=== PATIENT | male | born 1975 | race American Indian/Alaskan Native ===

== ENCOUNTER 2020-03-22 18:45 | Emergency (ER) | payer SELFPAY ==
--- NOTE | 2020-03-22 18:57 | Emergency Department Report ---
Blank Doc - Documentation Documentation: 44-year-old male that presents with chest pain and SOB. This initial assessment/diagnostic orders/clinical plan/treatment(s) is/are subject to change based on patient's health status, clinical progression and re- assessment by fellow clinical providers in the ED. Further treatment and workup at subsequent clinical providers discretion. Patient/guardians urged not to elope from the ED as their condition may be serious if not clinically assessed and managed. Initial orders include: 1- Patient sent to [facility] for further evaluation and treatment 2- cardiac workup
[2020-03-22 19:16] LABS: Basophils % (Auto) 0.3 % (0.0-1.8); Eosinophils # (Auto) 0.1 K/mm3 (0.0-0.4); Eosinophils % (Auto) 0.9 % (0.0-4.3); Hemoglobin 15.3 gm/dl (11.8-15.2); Lymphocytes # (Auto) 2.5 K/mm3 (1.2-5.4); Lymphocytes % (Auto) 21.9 % (13.4-35.0); Mean Corpuscular HGB Conc 33 % (32-34); Mean Corpuscular Volume 89 fl (84-94); Monocytes # (Auto) 0.7 K/mm3 (0.0-0.8); Monocytes % (Auto) 5.9 % (0.0-7.3); Platelet Count 207 K/mm3 (140-440); Red Blood Count 5.15 M/mm3 (3.65-5.03); Red Cell Distribution Width 12.8 % (13.2-15.2)
[2020-03-22 19:24] LABS: INR 0.93 (0.87-1.13)
[2020-03-22 19:25] LABS: Partial Thromboplastin Time 27.2 Sec. (24.2-36.6)
--- NOTE | 2020-03-22 19:27 | XRay Report ---
CHEST PA AND LATERAL VIEWS INDICATION: Chest Pain. COMPARISON: None. FINDINGS: Support devices: None. Heart: Within normal limits. Lungs/Pleura: No acute pulmonary or pleural findings. IMPRESSION: 1. No acute findings. Signer Name: Ben Slainas MD Signed: 03/22/2020 7:23 PM Workstation Name: [id number]
[2020-03-22 19:31] LABS: Alanine Aminotransferase 31 units/L (7-56); Albumin 4.9 g/dL (3.9-5); BUN/Creatinine Ratio 13; Blood Urea Nitrogen 10 mg/dL (9-20); Calcium 9.5 mg/dL (8.4-10.2); Hemolysis Index 18
[2020-03-22] MEDS ORDERED: LIDOCAINE VISCOUS 2% 15 ML ORAL LIQD PO ONE (19:52)
[2020-03-22] MEDS ORDERED: IBUPROFEN 800 MG TAB PO ONE (19:52)
[2020-03-22] MEDS ORDERED: ALUM-MAG HYDROXIDE-SIMETHICONE 200-200-20MG/5ML ORAL LIQD 30 ML PO ONE (19:52)
--- NOTE | 2020-03-22 20:03 | Emergency Department Report ---
ED Chest Pain HPI - General Chief Complaint: Chest Pain Stated Complaint: CHEST PAINS Time Seen by Provider: 03/22/20 18:56 Source: patient, family Mode of arrival: Ambulatory Limitations: No Limitations - History of Present Illness Initial Comments: Patient is a 44-year-old -Prydeinig male with a history of hypertension. Patient complains of chest pain with shortness of breath x2 days. There is no dizziness, lightheadedness, nausea vomiting,diaphoresis, no fever no chills. There is no productive cough no wheezing no stridor. Symptoms are exacerbated by movement. Symptoms are relieved by nothing tried. Patient is tolerating p.o. intake at this time. Patient denies smoking. Hypertension is controlled by lisinopril and amlodipine prescribed by PCP. Pain is rated as 5/10 at this time intermittent. There are no relieving factors. MD Complaint: chest pain - Related Data Previous Rx's Medication Instructions Recorded Last Taken Type Diclofenac Dr [Voltaren Dr] 75 mg PO Q12H #30 tablet 05/01/14 Unknown Rx traMADoL [Ultram 50 MG tab] 50 mg PO Q6HR PRN #20 tablet 05/01/14 Unknown Rx Ibuprofen [Motrin] 800 mg PO TID PRN #60 tablet 10/20/14 Unknown Rx Ondansetron [Zofran Odt] 4 mg PO Q6H #20 tab.rapdis 10/20/14 Unknown Rx Sulfamethoxazole/Trimethoprim 1 each PO BID #20 tablet 10/20/14 Unknown Rx [Bactrim Ds] traMADoL [Ultram] 50 mg PO Q6HR PRN #14 tablet 10/20/14 Unknown Rx Acetaminophen/Codeine [Tylenol #3] 1 tab PO Q6H PRN #15 tab 06/11/15 Unknown Rx Cyclobenzaprine [Flexeril 10 MG 10 mg PO TID PRN #12 tablet 06/11/15 Unknown Rx TAB] Ibuprofen [Motrin 800 MG tab] 800 mg PO Q8HR PRN #30 tablet 06/11/15 Unknown Rx Famotidine [Pepcid] 20 mg PO BID #15 tablet 03/22/20 Unknown Rx Ibuprofen [Motrin 800 MG tab] 800 mg PO Q8HR PRN #30 tablet 03/22/20 Unknown Rx Allergies Allergy/AdvReac Type Severity Reaction Status Date / Time No Known Allergies Allergy Unverified 05/01/14 13:46 Heart Score - HEART Score History: Slightly suspicious EKG: Normal Age: < 45 Risk factors: No known risk factors Troponin: < normal limit HEART Score: 0 ED Review of Systems ROS: Stated complaint: CHEST PAINS Other details as noted in HPI Constitutional: denies: chills, fever Eyes: denies: eye pain, eye discharge, vision change ENT: denies: ear pain, throat pain Respiratory: shortness of breath. denies: cough, wheezing Cardiovascular: chest pain. 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 - Social History Smoking Status: Never Smoker - Medications Home Medications: Home Medications Medication Instructions Recorded Confirmed Last Taken Type Diclofenac Dr [Voltaren Dr] 75 mg PO Q12H #30 tablet 05/01/14 Unknown Rx traMADoL [Ultram 50 MG tab] 50 mg PO Q6HR PRN #20 tablet 05/01/14 Unknown Rx Ibuprofen [Motrin] 800 mg PO TID PRN #60 tablet 10/20/14 Unknown Rx Ondansetron [Zofran Odt] 4 mg PO Q6H #20 tab.rapdis 10/20/14 Unknown Rx Sulfamethoxazole/Trimethoprim 1 each PO BID #20 tablet 10/20/14 Unknown Rx [Bactrim Ds] traMADoL [Ultram] 50 mg PO Q6HR PRN #14 tablet 10/20/14 Unknown Rx Acetaminophen/Codeine [Tylenol #3] 1 tab PO Q6H PRN #15 tab 06/11/15 Unknown Rx Cyclobenzaprine [Flexeril 10 MG 10 mg PO TID PRN #12 tablet 06/11/15 Unknown Rx TAB] Ibuprofen [Motrin 800 MG tab] 800 mg PO Q8HR PRN #30 tablet 06/11/15 Unknown Rx Famotidine [Pepcid] 20 mg PO BID #15 tablet 03/22/20 Unknown Rx Ibuprofen [Motrin 800 MG tab] 800 mg PO Q8HR PRN #30 tablet 03/22/20 Unknown Rx ED Physical Exam - General Limitations: No Limitations General appearance: alert, in no apparent distress - Head Head exam: Present: atraumatic, normocephalic - Eye Eye exam: Present: normal appearance - ENT ENT exam: Present: mucous membranes moist - Neck Neck exam: Present: normal inspection, full ROM. Absent: tenderness, lymphadenopathy, thyromegaly - Respiratory Respiratory exam: Present: normal lung sounds bilaterally. Absent: respiratory distress, wheezes, stridor, chest wall tenderness - Cardiovascular Cardiovascular Exam: Present: regular rate, normal rhythm, normal heart sounds. Absent: systolic murmur, diastolic murmur, rubs, gallop - GI/Abdominal GI/Abdominal exam: Present: soft, normal bowel sounds. Absent: distended, tenderness, bruit, hernia - Rectal Rectal exam: Present: deferred - Extremities Exam Extremities exam: Present: normal inspection, full ROM, normal capillary refill. Absent: tenderness, pedal edema - Back Exam Back exam: Present: normal inspection, full ROM. Absent: tenderness, CVA tenderness (R), CVA tenderness (L) - Neurological Exam Neurological exam: Present: alert, oriented X3, CN II-XII intact, normal gait - Psychiatric Psychiatric exam: Present: normal affect - Skin Skin exam: Present: warm, dry, intact, normal color. Absent: rash ED Course Vital Signs 03/22/20 18:58 Temperature 97.9 F Pulse Rate 97 H Respiratory 20 Rate Blood Pressure 174/99 O2 Sat by Pulse 95 Oximetry NARA score - Nara Score Age > 65: (0) No Aspirin use within the Past 7 Days: (0) No 3 or more CAD Risk Factors: (0) No 2 or more Angina events in past 24 hrs: (0) No Known CAD with more than 50% Stenosis: (0) No Elevated Cardiac Markers: (0) No ST Deviation Greater than 0.5mm: (0) No NARA Score: 0 ED Medical Decision Making - Lab Data Result diagrams: 03/22/20 19:00 03/22/20 19:00 Labs 03/22/20 03/22/20 03/22/20 19:00 19:00 19:00 WBC 11.6 H RBC 5.15 H Hgb 15.3 H Hct 46.0 H MCV 89 MCH 30 MCHC 33 RDW 12.8 L Plt Count 207 Lymph % (Auto) 21.9 [place] % (Auto) 5.9 Eos % (Auto) 0.9 Baso % (Auto) 0.3 Lymph # (Auto) 2.5 [place] # (Auto) 0.7 Eos # (Auto) 0.1 Baso # (Auto) 0.0 Seg Neutrophils % 71.0 H Seg Neutrophils # 8.2 H PT 12.4 INR 0.93 APTT 27.2 Sodium 138 Potassium 3.8 Chloride 99.9 Carbon Dioxide 26 Anion Gap 16 BUN 10 Creatinine 0.8 Estimated GFR > 60 BUN/Creatinine Ratio 13 Glucose 120 H Calcium 9.5 Total Bilirubin 0.60 AST 28 ALT 31 Alkaline Phosphatase 65 Troponin T < 0.010 Total Protein 8.0 Albumin 4.9 Albumin/Globulin Ratio 1.6 03/22/20 21:40 WBC RBC Hgb Hct MCV MCH MCHC RDW Plt Count Lymph % (Auto) [place] % (Auto) Eos % (Auto) Baso % (Auto) Lymph # (Auto) [place] # (Auto) Eos # (Auto) Baso # (Auto) Seg Neutrophils % Seg Neutrophils # PT INR APTT Sodium Potassium Chloride Carbon Dioxide Anion Gap BUN Creatinine Estimated GFR BUN/Creatinine Ratio Glucose Calcium Total Bilirubin AST ALT Alkaline Phosphatase Troponin T < 0.010 Total Protein Albumin Albumin/Globulin Ratio - EKG Data EKG shows normal: sinus rhythm - EKG Data When compared to previous EKG there are: previous EKG unavailable Interpretation: LVH (EKG: NSR, LVH, no STEMI, interp by ed attending. 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 COMPARISON: None. FINDINGS: Support devices: None. Heart: Within normal limits. Lungs/Pleura: No acute pulmonary or pleural findings. IMPRESSION: 1. No acute findings. Signer Name: Ben Salinas MD Signed: 03/22/2020 6:23 PM Workstation Name: [id number] - Medical Decision Making Chest x-ray no infiltrates no opacities, EKG normal sinus rhythm questionable LVH no ST elevated [place] EKG interpreted by ED attending. Patient states symptoms are improved. Labs are normal troponin 0 0.010 x2, heart score is 0. NARA score is 0. Plan DC to home in stable condition NSAIDs as needed pain follow-up with primary care doctor in 2 to 3 days. Patient verbalizes agreement and understanding with discharge plan. Patient DC'd home in stable condition at this time. Critical care attestation.: If time is entered above; I have spent that time in minutes in the direct care of this critically ill patient, excluding procedure time. ED Disposition Clinical Impression: Chest pain Qualifiers: Chest pain type: unspecified Qualified Code(s): R07.9 - Chest pain, unspecified Disposition: DC-01 TO HOME OR SELFCARE Is pt being admited?: No Does the pt Need Aspirin: No Condition: Stable Instructions: Chest Pain (ED), Nonspecific Chest Pain, Adult Prescriptions: Ibuprofen [Motrin 800 MG tab] 800 mg PO Q8HR PRN #30 tablet PRN Reason: Pain Famotidine [Pepcid] 20 mg PO BID #15 tablet Referrals: SIMEON NARVAEZ MD [Staff Physician] - 3-5 Days Forms: Work/School Release Form(ED) Time of Disposition: 22:35
[2020-03-23 00:46] VITALS: BP 150/87
== END 2020-03-22 22:45 | disposition home or self-care (01) ==
LOC: ED 18:45
DX: R07.89 Other chest pain (principal); I10 Essential (primary) hypertension; Z98.890 Other specified postprocedural states; Z79.899 Other long term (current) drug therapy
CPT/HCPCS: 36415; 71046; 80053; 84484; 85025; 85610; 85730; 93005